=== PATIENT | female | born 1975 | race American Indian/Alaskan Native ===

== ENCOUNTER 2022-01-21 07:26 | Inpatient (IN) | payer SELFPAY ==
[2022-01-21 11:06] LABS: Eosinophils # (Auto) 0.1 K/mm3 (0.0-0.4); Eosinophils % (Auto) 1.4 % (0.0-4.3); Lymphocytes # (Auto) 1.4 K/mm3 (1.2-5.4); Lymphocytes % (Auto) 31.1 % (13.4-35.0); Mean Corpuscular HGB Conc 28 % (30-34); Monocytes # (Auto) 0.2 K/mm3 (0.0-0.8); Monocytes % (Auto) 4.7 % (0.0-7.3); Platelet Count 326 K/mm3 (140-440)
[2022-01-21 11:18] LABS: Hematocrit 17.8 % (30.3-42.9); Mean Corpuscular Volume 64 fl (79-97); Red Cell Distribution Width 21.5 % (13.2-15.2)
[2022-01-21] MEDS ORDERED: SODIUM CHLORIDE 0.9% 1000 ML 1,000 ML IV ONE (11:21)
[2022-01-21 11:31] LABS: Alanine Aminotransferase 8 units/L (7-56); Albumin 4.1 g/dL (3.9-5); Calcium 8.8 mg/dL (8.4-10.2); Hemolysis Index 0
--- NOTE | 2022-01-21 11:39 | XRay Report ---
XR chest routine 2V INDICATION / CLINICAL INFORMATION: Chest Pain COMPARISON: 03/06/2012 FINDINGS: SUPPORT DEVICES: None. HEART / MEDIASTINUM: No significant abnormality. LUNGS / PLEURA: Lungs are clear. Costophrenic sulci are sharp. No pneumothorax. ADDITIONAL FINDINGS: No significant additional findings. IMPRESSION: 1. No acute findings. Signer Name: Teto Hernandez MD Signed: 01/21/2022 11:34 AM Workstation Name: [id number]
[2022-01-21 11:43] LABS: Basophils # (Auto) 0.1 K/mm3 (0.0-0.1); Basophils % (Auto) 2.7 % (0.0-1.8); Eosinophils # (Auto) 0.1 K/mm3 (0.0-0.4); Eosinophils % (Auto) 1.6 % (0.0-4.3); Lymphocytes # (Auto) 1.2 K/mm3 (1.2-5.4); Lymphocytes % (Auto) 25.5 % (13.4-35.0); Mean Corpuscular HGB Conc 29 % (30-34); Monocytes # (Auto) 0.2 K/mm3 (0.0-0.8); Monocytes % (Auto) 4.6 % (0.0-7.3); Platelet Count 313 K/mm3 (140-440); Red Blood Count 2.71 M/mm3 (3.65-5.03)
[2022-01-21 11:50] LABS: BUN/Creatinine Ratio 22; Blood Urea Nitrogen 11 mg/dL (7-17)
[2022-01-21 11:50] LABS: Mean Corpuscular Volume 63 fl (79-97); Red Cell Distribution Width 21.8 % (13.2-15.2)
[2022-01-21] MEDS ORDERED: SODIUM CHLORIDE 0.9% 500 ML 500 ML IV ONE ×2 (12:08→21:06)
--- NOTE | 2022-01-21 12:13 | Emergency Department Report ---
ED General Adult HPI - General Chief complaint: Anxiety Stated complaint: ANXIETY/RT ARM SPASM PUI?: No Time Seen by Provider: 01/21/22 09:55 Source: patient Mode of arrival: Ambulatory Limitations: No Limitations - History of Present Illness Initial comments: Patient is a 46-year-old female that comes to the emergency room from work. She went to work this morning was lifting her mother board with a colleague. When she developed acute onset of right-sided chest pain radiating down her right arm. She states that then cascaded into a series of events where she thought she was having an anxiety attack. She states that her right arm spasmed. On arrival she is tearful. She thinks that she is just having anxiety. She is a mother of 4. She has not seen a doctor in over 10 years. On arrival to the ER she states that the pain went away on its own. She did not take anything prior to arrival. Patient is on no home medications -: Sudden, hour(s) Location: chest Radiation: other Consistency: intermittent Improves with: immobilization Worsens with: movement Associated Symptoms: denies other symptoms, chest pain, loss of appetite, malaise, weakness. denies: confusion, cough, diaphoresis, fever/chills, headaches, nausea/vomiting, rash, seizure, shortness of breath, syncope Treatments Prior to Arrival: none - Related Data Allergies Allergy/AdvReac Type Severity Reaction Status Date / Time No Known Allergies Allergy Verified 01/21/22 07:35 ED Review of Systems ROS: Stated complaint: ANXIETY/RT ARM SPASM Other details as noted in HPI Comment: All other systems reviewed and negative ED Past Medical Hx - Past Medical History Previous Medical History?: Yes Hx Psychiatric Treatment: Yes (anxiety) - Surgical History Past Surgical History?: No - Family History Family history: no significant - Social History Smoking Status: Never Smoker Substance Use Type: None ED Physical Exam - General Limitations: No Limitations General appearance: alert - Head Head exam: Present: atraumatic, normocephalic - Eye Eye exam: Present: normal appearance, PERRL, EOMI - ENT ENT exam: Present: mucous membranes moist - Neck Neck exam: Present: normal inspection - Respiratory Respiratory exam: Present: normal lung sounds bilaterally. Absent: respiratory distress - Cardiovascular Cardiovascular Exam: Present: regular rate, normal rhythm. Absent: systolic murmur, diastolic murmur, rubs, gallop - GI/Abdominal GI/Abdominal exam: Present: soft, normal bowel sounds - Extremities Exam Extremities exam: Present: normal inspection - Back Exam Back exam: Present: normal inspection - Neurological Exam Neurological exam: Present: alert, oriented X3 - Psychiatric Psychiatric exam: Present: anxious - Skin Skin exam: Present: warm, dry, intact, pallor. Absent: rash ED Course Vital Signs 01/21/22 01/21/22 01/21/22 07:34 14:00 14:10 Temperature 97.8 F Pulse Rate 89 65 66 Respiratory 18 15 14 Rate Blood Pressure 117/81 134/70 O2 Sat by Pulse 94 55 L 99 Oximetry 01/21/22 01/21/22 01/21/22 14:20 14:30 14:33 Temperature 98.2 F Pulse Rate 61 63 63 Respiratory 11 L 14 12 Rate Blood Pressure 134/70 124/83 O2 Sat by Pulse 100 100 100 Oximetry 01/21/22 01/21/22 01/21/22 14:40 14:50 15:00 Temperature Pulse Rate 63 73 60 Respiratory 15 14 12 Rate Blood Pressure 121/75 121/75 122/72 O2 Sat by Pulse 100 100 100 Oximetry 01/21/22 01/21/22 01/21/22 15:10 15:20 15:30 Temperature Pulse Rate 74 62 74 Respiratory 14 17 11 L Rate Blood Pressure 113/80 113/80 119/68 O2 Sat by Pulse 99 94 Oximetry 01/21/22 01/21/22 01/21/22 15:40 15:50 16:00 Temperature Pulse Rate 71 62 62 Respiratory 9 L 12 11 L Rate Blood Pressure 123/81 123/81 116/87 O2 Sat by Pulse 100 99 100 Oximetry 01/21/22 01/21/22 01/21/22 16:10 16:20 16:30 Temperature Pulse Rate 71 67 68 Respiratory 18 16 13 Rate Blood Pressure 119/78 119/78 119/82 O2 Sat by Pulse 100 100 100 Oximetry 01/21/22 01/21/22 16:40 16:50 Temperature Pulse Rate 69 64 Respiratory 11 L 17 Rate Blood Pressure 122/82 122/82 O2 Sat by Pulse 100 100 Oximetry - Reevaluation(s) Reevaluation #1: 01/21/22 17:14 Dr. Curtis has been paged. She called back she is not on-call. Dr. Butler has now been paged Reevaluation #2: 01/21/22 17:43 Dr. Butler returned page. She wants to see patient outpatient for follow- up. Staffed with Dr. Keita, ER attending. Patient is getting 2 packed cells and needs ongoing monitoring for her symptomatic anemia. Therefore, Dr. Casanova was consulted. He will admit patient. ED Medical Decision Making - Lab Data Result diagrams: 01/21/22 11:30 01/21/22 10:56 - EKG Data -: EKG Interpreted by Ms EKG shows normal: sinus rhythm Rate: normal - Radiology Data Radiology results: report reviewed, image reviewed See report - Medical Decision Making Vital Signs 01/21/22 07:34 Temperature 97.8 F Pulse Rate 89 Respiratory 18 Rate Blood Pressure 117/81 O2 Sat by Pulse 94 Oximetry Vital Signs 01/21/22 07:34 Temperature 97.8 F Pulse Rate 89 Respiratory 18 Rate Blood Pressure 117/81 O2 Sat by Pulse 94 Oximetry Labs 01/21/22 01/21/22 01/21/22 10:56 10:56 10:56 WBC 4.5 RBC 2.80 L Hgb 5.0 L* Hct 17.8 L* MCV 64 L MCH 18 L MCHC 28 L RDW 21.5 H Plt Count 326 Lymph % (Auto) 31.1 Morrill % (Auto) 4.7 Eos % (Auto) 1.4 Baso % (Auto) 1.0 Lymph # (Auto) 1.4 Morrill # (Auto) 0.2 Eos # (Auto) 0.1 Baso # (Auto) 0.0 Seg Neutrophils % 61.8 Seg Neutrophils # 2.8 Sodium 138 Potassium 4.1 Chloride 107.1 H Carbon Dioxide 21 L Anion Gap 14 BUN 11 Creatinine 0.5 L Estimated GFR > 60 BUN/Creatinine Ratio 22 Glucose 100 Calcium 8.8 Total Bilirubin 0.20 AST 16 ALT 8 Alkaline Phosphatase 55 Troponin T < 0.010 Total Protein 6.7 Albumin 4.1 Albumin/Globulin Ratio 1.6 TSH HCG, Qual Negative 01/21/22 01/21/22 10:56 11:30 WBC 4.8 RBC 2.71 L Hgb 5.0 L* Hct 17.0 L* MCV 63 L MCH 18 L MCHC 29 L RDW 21.8 H Plt Count 313 Lymph % (Auto) 25.5 Morrill % (Auto) 4.6 Eos % (Auto) 1.6 Baso % (Auto) 2.7 H Lymph # (Auto) 1.2 Morrill # (Auto) 0.2 Eos # (Auto) 0.1 Baso # (Auto) 0.1 Seg Neutrophils % 65.6 Seg Neutrophils # 3.2 Sodium Potassium Chloride Carbon Dioxide Anion Gap BUN Creatinine Estimated GFR BUN/Creatinine Ratio Glucose Calcium Total Bilirubin AST ALT Alkaline Phosphatase Troponin T Total Protein Albumin Albumin/Globulin Ratio TSH 0.565 HCG, Qual Hemoglobin noted on CBC. I have resent to validate it. It again came back 5 Patient informed of lab results. She reports still having her periods, they are heavy, but not heavy enough to take her to FISCAL SERVICES DIRECTOR. She states she has not seen any doctor in 10 years patient she has no recent ER visit. Patient denies a history of anemia She denies any GI bleeding. No melena. No bright red blood on BMs. Troponin is normal Twelve-lead EKG noted uterine ultrasound ordered to rule out fibroids Patient states she is currently on her menses Patient to receive 2 units of packed RBCs Pelvic ultrasound noted Staffed with Dr. Keita 1700 repeat CBC and troponin ordered after RBCs. Patient being admitted to [facility] for further eval. Discussed with Dr. Casanova at 1744. He will see patient - Differential Diagnosis ro acs/anxiety/pe/infection Critical care attestation.: If time is entered above; I have spent that time in minutes in the direct care of this critically ill patient, excluding procedure time. ED Disposition Clinical Impression: Symptomatic anemia, Vaginal bleeding Disposition: 02 [facility]ORT TERM [facility] Is pt being admited?: Yes Does the pt Need Aspirin: No Condition: Stable Referrals: DONNA QUIROGA MD [Primary Care Provider] - 3-5 Days LISA CURTIS MD [Staff Physician] - 3-5 Days Time of Disposition: 12:14
--- NOTE | 2022-01-21 13:52 | Ultrasound Report ---
ULTRASOUND PELVIS INDICATION / CLINICAL INFORMATION: dub; hgb 5; pain. TECHNIQUE: Transabdominal and Transvaginal. Duplex Color Doppler used: Yes. COMPARISON: None available FINDINGS: UTERUS: Present. - Appearance (if present): No significant abnormality. - Size in cm (if present): 10.9 x 7.2 x 8.7. - Endometrial Complex (if present): No significant abnormality.. Thickness in cm (if measured) = 1.8 - Mass lesions: There are multiple myometrial masses consistent with uterine fibroids measuring up to 2.8 cm. - Additional findings: None. RIGHT ADNEXA: No significant ovarian cyst or mass. Normal color Doppler blood flow. LEFT ADNEXA: No significant ovarian cyst or mass. Normal color Doppler blood flow. URINARY BLADDER: No significant abnormality. FREE FLUID: None. ADDITIONAL FINDINGS: None. IMPRESSION: 1. Enlarged uterus containing multiple uterine fibroids. Signer Name: Taco Freeman MD Signed: 01/21/2022 1:48 PM Workstation Name: [email or web address]
[2022-01-21 14:19] LABS: Partial Thromboplastin Time 26.6 Sec. (24.2-36.6)
[2022-01-21] MEDS ORDERED: diphenhydrAMINE 50 MG/ML VIAL IV ONE (19:44)
[2022-01-21] MEDS ORDERED: ACETAMINOPHEN 325 MG TAB PO PRN (20:56)
[2022-01-21] MEDS ORDERED: METOCLOPRAMIDE 10 MG/2 ML INJ IV PRN (20:56)
[2022-01-21] MEDS ORDERED: ONDANSETRON 4 MG/2 ML INJ IV PRN (20:56)
[2022-01-21] MEDS ORDERED: SODIUM CHLORIDE 0.9% 1000 ML 1,000 ML IV SCH (21:00)
--- NOTE | 2022-01-21 21:10 | History and Physical Report ---
History of Present Illness Date of examination: 01/21/22 Date of admission: January 21, 2022 Chief complaint: Right-sided chest pain and anxiety around 11 AM at work History of present illness: 46-year-old -[place]ian female with no significant past medical history ex cept for anxiety and menorrhagia comes in for right-sided chest pain when trying to lift some heavy objects with her colleague at work. She developed acute right-sided chest pain radiating down the right arm. Which made her very anxious. On arrival she was tearful. Patient thinks that she is having an anxiety attack. In the emergency room work-up revealed hemoglobin of 5. Apparently patient was told that she has uterine fibroids 1 month ago and that she needs hysterectomy. Patient being admitted for hemoglobin of 5 and anxiety. Chest pain is resolved. She still has heavy menstrual periods. - Past Medical History --Previous Medical History?: Yes --Psychiatric Treatment: Yes (anxiety) - Surgical History --Past Surgical History?: No - Family History --Family history: no significant - Social History --Smoking Status: Never Smoker --Substance Use Type: None Review of Systems ROS: Stated complaint: ANXIETY/RT ARM SPASM Other details as noted in HPI Comment: All other systems reviewed and negative Medications and Allergies Allergies Allergy/AdvReac Type Severity Reaction Status Date / Time No Known Allergies Allergy Verified 01/21/22 07:35 Exam - Constitutional Vitals: Temp Pulse Resp BP Pulse Ox 98.7 F 57 L 15 151/87 100 01/21/22 17:00 01/21/22 19:30 01/21/22 19:30 01/21/22 19:30 01/21/22 19:30 General appearance: Present: no acute distress, well-nourished - EENT Eyes: Present: PERRL ENT: hearing intact, clear oral mucosa, other (Pale conjunctiva mucous membranes) - Neck Neck: Present: supple, normal ROM - Respiratory Respiratory effort: normal Respiratory: bilateral: CTA - Cardiovascular Rhythm: regular Heart Sounds: Present: S1 & S2. Absent: rub, click - Extremities Extremities: pulses symmetrical, No edema Peripheral Pulses: within normal limits - Abdominal General gastrointestinal: Present: soft, non-tender, non-distended, normal bowel sounds Female genitourinary: Present: normal - Integumentary Integumentary: Present: clear, warm, dry - Musculoskeletal Musculoskeletal: gait normal, strength equal bilaterally - Psychiatric Psychiatric: appropriate mood/affect, intact judgment & insight - Neurologic Neurologic: CNII-XII intact, moves all extremities HEART Score - HEART Score Troponin: Troponin T < 0.010 ng/mL (0.00-0.029) 01/21/22 10:56 Results - Labs CBC & Chem 7: 01/21/22 11:30 01/21/22 10:56 Labs: Laboratory Last Values WBC 4.8 K/mm3 (4.5-11.0) 01/21/22 11:30 RBC 2.71 M/mm3 (3.65-5.03) L 01/21/22 11:30 Hgb 5.0 gm/dl (10.1-14.3) L* 01/21/22 11:30 Hct 17.0 % (30.3-42.9) L* 01/21/22 11:30 MCV 63 fl (79-97) L 01/21/22 11:30 MCH 18 pg (28-32) L 01/21/22 11:30 MCHC 29 % (30-34) L 01/21/22 11:30 RDW 21.8 % (13.2-15.2) H 01/21/22 11:30 Plt Count 313 K/mm3 (140-440) 01/21/22 11:30 Lymph % (Auto) 25.5 % (13.4-35.0) 01/21/22 11:30 Morrill % (Auto) 4.6 % (0.0-7.3) 01/21/22 11:30 Eos % (Auto) 1.6 % (0.0-4.3) 01/21/22 11:30 Baso % (Auto) 2.7 % (0.0-1.8) H 01/21/22 11:30 Lymph # (Auto) 1.2 K/mm3 (1.2-5.4) 01/21/22 11:30 Morrill # (Auto) 0.2 K/mm3 (0.0-0.8) 01/21/22 11:30 Eos # (Auto) 0.1 K/mm3 (0.0-0.4) 01/21/22 11:30 Baso # (Auto) 0.1 K/mm3 (0.0-0.1) 01/21/22 11:30 Seg Neutrophils % 65.6 % (40.0-70.0) 01/21/22 11:30 Seg Neutrophils # 3.2 K/mm3 (1.8-7.7) 01/21/22 11:30 PT 14.3 Sec. (12.2-14.9) 01/21/22 12:23 INR 1.00 (0.87-1.13) 01/21/22 12:23 APTT 26.6 Sec. (24.2-36.6) 01/21/22 12:23 Sodium 138 mmol/L (137-145) 01/21/22 10:56 Potassium 4.1 mmol/L (3.6-5.0) 01/21/22 10:56 Chloride 107.1 mmol/L (98-107) H 01/21/22 10:56 Carbon Dioxide 21 mmol/L (22-30) L 01/21/22 10:56 Anion Gap 14 mmol/L 01/21/22 10:56 BUN 11 mg/dL (7-17) 01/21/22 10:56 Creatinine 0.5 mg/dL (0.6-1.2) L 01/21/22 10:56 Estimated GFR > 60 ml/min 01/21/22 10:56 BUN/Creatinine Ratio 22 % 01/21/22 10:56 Glucose 100 mg/dL (65-100) 01/21/22 10:56 Calcium 8.8 mg/dL (8.4-10.2) 01/21/22 10:56 Total Bilirubin 0.20 mg/dL (0.1-1.2) 01/21/22 10:56 AST 16 units/L (5-40) 01/21/22 10:56 ALT 8 units/L (7-56) 01/21/22 10:56 Alkaline Phosphatase 55 units/L (35-129) 01/21/22 10:56 Troponin T < 0.010 ng/mL (0.00-0.029) 01/21/22 10:56 Total Protein 6.7 g/dL (6.3-8.2) 01/21/22 10:56 Albumin 4.1 g/dL (3.9-5) 01/21/22 10:56 Albumin/Globulin Ratio 1.6 % 01/21/22 10:56 TSH 0.565 mlU/mL (0.270-4.200) 01/21/22 10:56 HCG, Qual Negative (Negative) 01/21/22 10:56 Blood Type AB POSITIVE 01/21/22 11:30 Antibody Screen Negative 01/21/22 11:30 Crossmatch See Detail 01/21/22 11:30 Short CBC 01/21/22 01/21/22 Range/Units 10:56 11:30 WBC 4.5 4.8 (4.5-11.0) K/mm3 Hgb 5.0 L* 5.0 L* (10.1-14.3) gm/dl Hct 17.8 L* 17.0 L* (30.3-42.9) % Plt Count 326 313 (140-440) K/mm3 BMP 01/21/22 10:56 Sodium 138 Potassium 4.1 Chloride 107.1 H Carbon Dioxide 21 L BUN 11 Creatinine 0.5 L Glucose 100 Calcium 8.8 Cardiac Enzymes 01/21/22 Range/Units 10:56 Troponin T < 0.010 (0.00-0.029) ng/mL Liver Function 01/21/22 Range/Units 10:56 Total Bilirubin 0.20 (0.1-1.2) mg/dL AST 16 (5-40) units/L ALT 8 (7-56) units/L Alkaline Phosphatase 55 (35-129) units/L Albumin 4.1 (3.9-5) g/dL Assessment and Plan Advance Directives: Yes (Full Code) VTE prophylaxis?: Chemical Plan of care discussed with patient/family: Yes - Patient Problems (1) Symptomatic anemia Current Visit: Yes Status: Acute Plan to address problem: Secondary to menorrhagia Transfused 2 units of blood Patient has fibroids Needs hysterectomy as outpatient CLINICAL OPERATIONS SPECIALIST consulted (2) Acute chest wall pain Current Visit: Yes Status: Acute Plan to address problem: Secondary to lifting heavy objects Muscle spasm No cardiac work-up Chest pain is on the right side (3) Menorrhagia Current Visit: Yes Status: Chronic Qualifiers: Menorrhagia type: with regular cycle Qualified Code(s): N92.0 - Excessive and frequent menstruation with regular cycle Plan to address problem: HEAD END DESIZING MACHINE OPERATOR consulted Has fibroids Needs hysterectomy as outpatient (4) Anxiety attack Current Visit: Yes Status: Acute Plan to address problem: Ativan as needed Not anxious during my exam (5) DVT prophylaxis Current Visit: Yes Status: Acute Plan to address problem: Only SCDs and GI prophylaxis (6) Advance care planning Current Visit: Yes Status: Acute Plan to address problem: Disease education conducted, care plan discussed, diagnosis discussed, prognosis discussed. Patient is full code. Patient acknowledges understanding and agreement with care plan. +30 minutes.
[2022-01-21] MEDS ORDERED: HEPARIN 5,000 UNIT/1 ML VIAL SUB-Q SCH (22:00)
[2022-01-22] MEDS: MORPHINE 2 MG/1 ML INJ IV PRN ×2 (00:41→21:15)
[2022-01-22] MEDS: oxyCODONE /ACETAMINOPHEN 5-325MG TAB PO PRN ×2 (10:04→16:42)
--- NOTE | 2022-01-22 11:28 | Progress Note ---
Assessment and Plan Assessment and plan: 46-year-old -[place]ian female with no significant past medical history except for anxiety and menorrhagia comes in for right-sided chest pain when trying to lift some heavy objects with her colleague at work. She developed acute right-sided chest pain radiating down the right arm. Which made her very anxious. On arrival she was tearful. Patient thinks that she is having an anxiety attack. In the emergency room work-up revealed hemoglobin of 5. Apparently patient was told that she has uterine fibroids 1 month ago and that she needs hysterectomy. Patient being admitted for hemoglobin of 5 and anxiety. Chest pain is resolved. She still has heavy menstrual periods. Transvaginal ultrasound IMPRESSION: 1. Enlarged uterus containing multiple uterine fibroids. Symptomatic anemia Menorrhagia-patient states is debilitating and is affected her life. Uterine fibroids Anxiety DUB secondary to uterine fibroids Possible transfusion reaction Atypical chest pain Plan Continue supportive care Patient was transfused 2 unit packed red blood cells but appears at the second unit secondary to shortness of breath and chest pain she describes the chest pain started with the second unit and resolved when this was stopped with the associated shortness of breath. As result we will get a chest x-ray to further evaluate Awaiting FINANCIAL SALES ASSOCIATE evaluation for noted fibrous and possible hysterectomy Consult cardiology for preop clearance considering reported chest pain Continue pain control and anxiety management DVT prophylaxis with SCD considering severe anemia and PPI for GI prophylaxis Advance care planning done on admission History Interval history: Patient seen and examined she says she did have chest pain while she was getting the second dose of her blood transfusion and difficulty breathing which has but resolved. At this time she is having more of suprapubic pain and discomfort which she rates a 6/10 in intensity. Hospitalist Physical - Physical exam Narrative exam: VITAL SIGNS: Reviewed. GENERAL: The patient appears normally developed, in mild distress secondary to pain vital signs as documented. HEAD: No signs of head trauma. EYES: Pupils are equal. Extraocular motions intact. EARS: Hearing grossly intact. MOUTH: Oropharynx is normal. NECK: No adenopathy, no JVD. CHEST: Chest with clear breath sounds bilaterally. No wheezes, rales, or rhonchi. CARDIAC: Regular rate and rhythm. S1 and S2, without murmurs, gallops, or rubs. VASCULAR: No Edema. Peripheral pulses normal and equal in all extremities. ABDOMEN: Soft, tender although no rebound tenderness she is guarding due to discomfort and non distended. No rebound or guarding, and no masses palpated. Bowel Sounds normal. MUSCULOSKELETAL: Good range of motion of all major joints. Extremities without clubbing, cyanosis or edema. NEUROLOGIC EXAM: Alert and oriented x 3 No focal sensory or strength deficits. Speech normal. Follows commands. PSYCHIATRIC: Mood normal. SKIN: detail exam as documented in skin assessment - Constitutional Vitals: Temp Pulse Resp BP Pulse Ox 98 F 57 L 17 109/71 100 01/22/22 05:13 01/22/22 05:13 01/22/22 05:13 01/22/22 05:13 01/22/22 05:13 General appearance: Present: no acute distress, well-nourished HEART Score - HEART Score Troponin: Troponin T < 0.010 ng/mL (0.00-0.029) 01/21/22 10:56 Results - Labs CBC & Chem 7: 01/21/22 11:30 01/21/22 10:56 Labs: Laboratory Last Values WBC 4.8 K/mm3 (4.5-11.0) 01/21/22 11:30 RBC 2.71 M/mm3 (3.65-5.03) L 01/21/22 11:30 Hgb 5.0 gm/dl (10.1-14.3) L* 01/21/22 11:30 Hct 17.0 % (30.3-42.9) L* 01/21/22 11:30 MCV 63 fl (79-97) L 01/21/22 11:30 MCH 18 pg (28-32) L 01/21/22 11:30 MCHC 29 % (30-34) L 01/21/22 11:30 RDW 21.8 % (13.2-15.2) H 01/21/22 11:30 Plt Count 313 K/mm3 (140-440) 01/21/22 11:30 Lymph % (Auto) 25.5 % (13.4-35.0) 01/21/22 11:30 Nolan % (Auto) 4.6 % (0.0-7.3) 01/21/22 11:30 Eos % (Auto) 1.6 % (0.0-4.3) 01/21/22 11:30 Baso % (Auto) 2.7 % (0.0-1.8) H 01/21/22 11:30 Lymph # (Auto) 1.2 K/mm3 (1.2-5.4) 01/21/22 11:30 Nolan # (Auto) 0.2 K/mm3 (0.0-0.8) 01/21/22 11:30 Eos # (Auto) 0.1 K/mm3 (0.0-0.4) 01/21/22 11:30 Baso # (Auto) 0.1 K/mm3 (0.0-0.1) 01/21/22 11:30 Seg Neutrophils % 65.6 % (40.0-70.0) 01/21/22 11:30 Seg Neutrophils # 3.2 K/mm3 (1.8-7.7) 01/21/22 11:30 PT 14.3 Sec. (12.2-14.9) 01/21/22 12:23 INR 1.00 (0.87-1.13) 01/21/22 12:23 APTT 26.6 Sec. (24.2-36.6) 01/21/22 12:23 Sodium 138 mmol/L (137-145) 01/21/22 10:56 Potassium 4.1 mmol/L (3.6-5.0) 01/21/22 10:56 Chloride 107.1 mmol/L (98-107) H 01/21/22 10:56 Carbon Dioxide 21 mmol/L (22-30) L 01/21/22 10:56 Anion Gap 14 mmol/L 01/21/22 10:56 BUN 11 mg/dL (7-17) 01/21/22 10:56 Creatinine 0.5 mg/dL (0.6-1.2) L 01/21/22 10:56 Estimated GFR > 60 ml/min 01/21/22 10:56 BUN/Creatinine Ratio 22 % 01/21/22 10:56 Glucose 100 mg/dL (65-100) 01/21/22 10:56 Calcium 8.8 mg/dL (8.4-10.2) 01/21/22 10:56 Total Bilirubin 0.20 mg/dL (0.1-1.2) 01/21/22 10:56 AST 16 units/L (5-40) 01/21/22 10:56 ALT 8 units/L (7-56) 01/21/22 10:56 Alkaline Phosphatase 55 units/L (35-129) 01/21/22 10:56 Troponin T < 0.010 ng/mL (0.00-0.029) 01/21/22 10:56 Total Protein 6.7 g/dL (6.3-8.2) 01/21/22 10:56 Albumin 4.1 g/dL (3.9-5) 01/21/22 10:56 Albumin/Globulin Ratio 1.6 % 01/21/22 10:56 TSH 0.565 mlU/mL (0.270-4.200) 01/21/22 10:56 HCG, Qual Negative (Negative) 01/21/22 10:56 Blood Type AB POSITIVE 01/21/22 11:30 Antibody Screen Negative 01/21/22 11:30 Crossmatch See Detail 01/21/22 11:30 Oneill/IV: Voiding Method Toilet Active Medications - Current Medications Current Medications: Generic Name Dose Route Start Last Admin Trade Name Freq PRN Reason Stop Dose Admin Acetaminophen 650 mg 01/21/22 20:56 01/22/22 00:31 Acetaminophen 325 Mg Tab PO 650 mg Q4H PRN Administration Pain MILD(1-3)/Fever >100.5/DARNELL Sodium Chloride 1,000 mls @ 42 mls/hr 01/21/22 21:00 01/22/22 10:18 Nacl 0.9% 1000 Ml IV 42 mls/hr DIRECT LUIS Administration Metoclopramide HCl 10 mg 01/21/22 20:56 01/22/22 01:15 Metoclopramide 10 Mg/2 Ml Inj IV 10 mg Q6H PRN Administration Nausea And Vomiting Morphine Sulfate 2 mg 01/21/22 20:56 01/22/22 00:41 Morphine 2 Mg/1 Ml Inj IV 2 mg Q4H PRN Administration Pain, Moderate (4-6) Ondansetron HCl 4 mg 01/21/22 20:56 Ondansetron 4 Mg/2 Ml Inj IV Q8H PRN Nausea And Vomiting Oxycodone/Acetaminophen 1 tab 01/21/22 20:56 01/22/22 10:04 Oxycodone /Acetaminophen 5-325mg Tab PO 1 tab Q6H PRN Administration Pain, Moderate (4-6) Sodium Chloride 10 ml 01/21/22 22:00 01/22/22 10:10 Sodium Chloride 0.9% 10 Ml Flush Syringe IV 10 ml BID LUIS Administration Sodium Chloride 10 ml 01/21/22 20:56 Sodium Chloride 0.9% 10 Ml Flush Syringe IV PRN PRN LINE FLUSH
--- NOTE | 2022-01-22 12:04 | Consultation ---
History of Present Illness Consult date: 01/22/22 Requesting physician: SHIRA SUTTON Consult reason: other (Preop clearance) History of present illness: Patient is a 46y/o female with pmhx of anxiety, depressions, and uterine fibroid/tumors?(patient is unsure) who reported to the ED with a complaint of sudden onset of right arm numbness, dizziness, and seeing stars when at work lifting an object yesterday. Patient drove her self to the hospital for further evaluation. In the ED patient was found to have a hemoglobin of 5. Patient received blood transfusion patient reports that during blood transfusion she had quick episode of sharp pain but has not had any other episodes of chest pain. Furthermore patient does report that during her menstrual cycles which has large amounts of bleeding. At time of interview patient denies chest pain, shortness of breath, vomiting, diaphoresis, or palpitations. She does report that she has abdominal pain in her pelvic area and some nausea. Patient is previously known to our practice. Cardiology is consulted for chest pain and preop clearance. Past History Past Medical History: other (See HPI) Past Surgical History: No surgical history Social history: no significant social history Family history: cancer, stroke Medications and Allergies Allergies Allergy/AdvReac Type Severity Reaction Status Date / Time No Known Allergies Allergy Verified 01/21/22 07:35 Active Meds: Active Medications Acetaminophen (Acetaminophen 325 Mg Tab) 650 mg PO Q4H PRN PRN Reason: Pain MILD(1-3)/Fever >100.5/DARNELL Last Admin: 01/22/22 00:31 Dose: 650 mg Sodium Chloride (Nacl 0.9% 1000 Ml) 1,000 mls @ 42 mls/hr IV DIRECT LUIS Last Admin: 01/22/22 10:18 Dose: 42 mls/hr Metoclopramide HCl (Metoclopramide 10 Mg/2 Ml Inj) 10 mg IV Q6H PRN PRN Reason: Nausea And Vomiting Last Admin: 01/22/22 01:15 Dose: 10 mg Morphine Sulfate (Morphine 2 Mg/1 Ml Inj) 2 mg IV Q4H PRN PRN Reason: Pain, Moderate (4-6) Last Admin: 01/22/22 00:41 Dose: 2 mg Ondansetron HCl (Ondansetron 4 Mg/2 Ml Inj) 4 mg IV Q8H PRN PRN Reason: Nausea And Vomiting Oxycodone/Acetaminophen (Oxycodone /Acetaminophen 5-325mg Tab) 1 tab PO Q6H PRN PRN Reason: Pain, Moderate (4-6) Last Admin: 01/22/22 10:04 Dose: 1 tab Sodium Chloride (Sodium Chloride 0.9% 10 Ml Flush Syringe) 10 ml IV BID LUIS Last Admin: 01/22/22 10:10 Dose: 10 ml Sodium Chloride (Sodium Chloride 0.9% 10 Ml Flush Syringe) 10 ml IV PRN PRN PRN Reason: LINE FLUSH Review of Systems Constitutional: no weight loss, no weight gain, no fever, no chills Ears, nose, mouth and throat: no nasal discharge, no sinus pressure, no sinus pain Cardiovascular: no chest pain, no orthopnea, no palpitations, no rapid/irregular heart beat, no shortness of breath, no dyspnea on exertion Respiratory: no shortness of breath, no dyspnea on exertion Gastrointestinal: nausea, no vomiting Genitourinary Female: menorrhagia, abnormal vaginal bleeding Menstruation: menses 8 or > days Musculoskeletal: shooting arm pain (Right upper extremity), no neck stiffness, no neck pain Integumentary: no rash, no pruritis, no redness Neurological: no head injury, no transient paralysis, no paralysis, no weakness Psychiatric: anxiety, no memory loss Endocrine: no cold intolerance, no heat intolerance Hematologic/Lymphatic: no easy bruising, no easy bleeding Physical Examination Vital Signs Temp Pulse Resp BP Pulse Ox 97.8 F 89 18 117/81 94 01/21/22 07:34 01/21/22 07:34 01/21/22 07:34 01/21/22 07:34 01/21/22 07:34 General appearance: no acute distress HEENT: Positive: PERRL Cardiac: Positive: Reg Rate and Rhythm Lungs: Positive: Normal Breath Sounds Neuro: Positive: Grossly Intact Abdomen: Positive: Soft, Active Bowel Sounds Skin: Negative: Rash, Suspicious Lesions, Ulceration Extremities: Present: upper extr. pulses. Absent: edema Results 01/21/22 11:30 01/21/22 10:56 Coagulation 01/21/22 Range/Units 12:23 PT 14.3 (12.2-14.9) Sec. INR 1.00 (0.87-1.13) APTT 26.6 (24.2-36.6) Sec. - Imaging and Cardiology Echo: pending EKG interpretations - Telemetry EKG Rhythm: Sinus Rhythm - EKG Sinus rhythms and dysrhythmias: sinus rhythm Repolarization changes or abnormalities: nonspecific abnormality, ST segment, and/or T wave Assessment and Plan Patient is a 46y/o female with pmhx of anxiety, depressions, and uterine fibroid/tumors?(patient is unsure) who reported to the ED with a complaint of sudden onset of right arm numbness, dizziness, and seeing stars when at work lifting an object yesterday and found to have hemoglobin of 5 as a result of vaginal bleed Symptomatic anemia Menorrhagia Anxiety Depression Uterine fibroids? Plan: EKG shows sinus rhythm 67 with nonspecific T abnormalities. Troponin negative x1. Patient denies any complaint of chest pain Echo pending Pt is RCRI class 2 (1 points, 6 % risk of MACE) awaiting surgical intervention for hysterectomy. Patient is without ischemic changes on EKG. In the absence of ischemic cardiac symptoms or acutely decompensated heart failure and no contraindications to surgical intervention at this point from a CV standpoint Patient seen in conjunction with Dr. Perez who agrees with this plan of care - Patient Problems (1) Anxiety attack Current Visit: Yes Status: Acute (2) Symptomatic anemia Current Visit: Yes Status: Acute (3) Vaginal bleeding Current Visit: Yes Status: Acute (4) Menorrhagia Current Visit: Yes Status: Chronic Qualifiers: Menorrhagia type: with regular cycle Qualified Code(s): N92.0 - Excessive and frequent menstruation with regular cycle
[2022-01-22 12:08] LABS: Bacteria,Urine 1+ /HPF (Negative); Bilirubin,Urine NEG (Negative); Blood,Urine LG (Negative); Color,Urine Yellow (Yellow); Mucus,Urine 2+ /HPF
[2022-01-22 12:09] LABS: RBC,Urine > 182.0 /HPF (0.0-6.0)
--- NOTE | 2022-01-22 12:13 | XRay Report ---
CHEST 1 VIEW INDICATION / CLINICAL INFORMATION: shortness of breath. COMPARISON: 01/21/2022 FINDINGS: SUPPORT DEVICES: None. HEART / MEDIASTINUM: No significant abnormality. LUNGS / PLEURA: No significant pulmonary or pleural abnormality. No pneumothorax. ADDITIONAL FINDINGS: No significant additional findings. IMPRESSION: 1. No acute findings. Signer Name: Theo Cook MD Signed: 01/22/2022 12:09 PM Workstation Name: [id number]
[2022-01-22 12:41] LABS: Amphetamine Screen,Urine Negative; Benzodiazepines Screen,Urine Negative; Cocaine Screen,Urine Negative; Methadone Screen,Urine Negative; Opiate Screen,Urine Negative
[2022-01-22 13:03] LABS: Cannabinoid Screen,Urine Positive
[2022-01-22 13:39] LABS: Hematocrit 27.8 % (30.3-42.9); Hemoglobin 8.7 gm/dl (10.1-14.3); Mean Corpuscular HGB Conc 31 % (30-34); Mean Corpuscular Volume 72 fl (79-97); Platelet Count 284 K/mm3 (140-440); Red Blood Count 3.86 M/mm3 (3.65-5.03)
[2022-01-22 13:43] LABS: Blood Urea Nitrogen 7 mg/dL (7-17); Calcium 8.8 mg/dL (8.4-10.2); Hemolysis Index 1
[2022-01-22 13:45] LABS: Red Cell Distribution Width 25.7 % (13.2-15.2)
[2022-01-22 13:56] LABS: Creatine Kinase MB 1.1 ng/mL (0.0-4.0)
[2022-01-22 14:07] LABS: BUN/Creatinine Ratio 14
[2022-01-22 14:34] LABS: Total Cells Counted 100
[2022-01-22 14:39] LABS: Anisocytosis 2+; Poikilocytosis Few
[2022-01-22 14:40] LABS: Hypochromasia 1+; Large Platelets Rare; Ovalocytes Rare; Platelet Estimate Consistent w Auto; Tear Drop Cells Rare
--- NOTE | 2022-01-22 17:36 | Consultation ---
History of Present Illness Consult date: 01/22/22 Reason for consult: menorrhagia History of present illness: I am not taking this patient to surgery on this admission as I explained to the ER PA during our phone consult 01/21/22. She requires a complete workup to include an endometrial biopsy which is unavailable while inpatient. She is not a candidate for surgery on this admission-she is hemodynamically stable without tachycardia. Her issues are chronic. She has menorrhagia that can be managed with medication after hyperplasia/malignancy is ruled out. Her cardiac symptoms most likely second to chronic iron deficiency anemia obvious supersede her chronic cyclic vaginal bleeding(MENORRHAGIA). Please have patient follow up 7 days after discharge. My recommendations remain the same: blood transfusion to a Hb between 8-10 and outpatient follow up. Nicky Butler MD Medications and Allergies Allergies Allergy/AdvReac Type Severity Reaction Status Date / Time No Known Allergies Allergy Verified 01/21/22 07:35 Home Medications Medication Instructions Recorded Confirmed Last Taken Type No Known Home Medications [No 01/22/22 01/22/22 Unknown History Reported Home Medications] Active Meds: Active Medications Acetaminophen (Acetaminophen 325 Mg Tab) 650 mg PO Q4H PRN PRN Reason: Pain MILD(1-3)/Fever >100.5/DARNELL Last Admin: 01/22/22 00:31 Dose: 650 mg Sodium Chloride (Nacl 0.9% 1000 Ml) 1,000 mls @ 42 mls/hr IV DIRECT LUIS Last Admin: 01/22/22 10:18 Dose: 42 mls/hr Metoclopramide HCl (Metoclopramide 10 Mg/2 Ml Inj) 10 mg IV Q6H PRN PRN Reason: Nausea And Vomiting Last Admin: 01/22/22 01:15 Dose: 10 mg Morphine Sulfate (Morphine 2 Mg/1 Ml Inj) 2 mg IV Q4H PRN PRN Reason: Pain, Moderate (4-6) Last Admin: 01/22/22 00:41 Dose: 2 mg Ondansetron HCl (Ondansetron 4 Mg/2 Ml Inj) 4 mg IV Q8H PRN PRN Reason: Nausea And Vomiting Oxycodone/Acetaminophen (Oxycodone /Acetaminophen 5-325mg Tab) 1 tab PO Q6H PRN PRN Reason: Pain, Moderate (4-6) Last Admin: 01/22/22 16:42 Dose: 1 tab Sodium Chloride (Sodium Chloride 0.9% 10 Ml Flush Syringe) 10 ml IV BID LUIS Last Admin: 01/22/22 10:10 Dose: 10 ml Sodium Chloride (Sodium Chloride 0.9% 10 Ml Flush Syringe) 10 ml IV PRN PRN PRN Reason: LINE FLUSH - Vital Signs Vital signs: Vital Signs Temp Pulse Resp BP Pulse Ox 97.8 F 89 18 117/81 94 01/21/22 07:34 01/21/22 07:34 01/21/22 07:34 01/21/22 07:34 01/21/22 07:34 Temp Pulse Resp BP Pulse Ox 97.7 F 46 L 16 155/85 100 01/22/22 16:40 01/22/22 16:40 01/22/22 16:40 01/22/22 16:40 01/22/22 16:40 Results Result Diagrams: 01/22/22 12:57 01/22/22 12:57 Abnormal lab results 01/21/22 01/22/22 01/22/22 Range/Units 11:30 12:57 12:57 Hgb 8.7 L D (10.1-14.3) gm/dl Hct 27.8 L D (30.3-42.9) % MCV 72 L (79-97) fl MCH 23 L (28-32) pg RDW 25.7 H (13.2-15.2) % Lymphocytes # (Manual) 1.1 L (1.2-5.4) K/mm3 Chloride 109.7 H (98-107) mmol/L Carbon Dioxide 21 L (22-30) mmol/L Creatinine 0.5 L (0.6-1.2) mg/dL Crossmatch See Detail All other labs normal.
[2022-01-23] MEDS: oxyCODONE /ACETAMINOPHEN 5-325MG TAB PO PRN (08:03)
--- NOTE | 2022-01-23 08:21 | Progress Note ---
Assessment and Plan Assessment and plan: 46-year-old -[place] female with no significant past medical history except for anxiety and menorrhagia comes in for right-sided chest pain when trying to lift some heavy objects with her colleague at work. She developed acute right-sided chest pain radiating down the right arm. Which made her very anxious. On arrival she was tearful. Patient thinks that she is having an anxiety attack. In the emergency room work-up revealed hemoglobin of 5. Apparently patient was told that she has uterine fibroids 1 month ago and that she needs hysterectomy. Patient being admitted for hemoglobin of 5 and anxiety. Chest pain is resolved. She still has heavy menstrual periods. Transvaginal ultrasound IMPRESSION: 1. Enlarged uterus containing multiple uterine fibroids. --Symptomatic anemia; received total 4 units of PRBC Hemoglobin improved from 5-8.4 --Menorrhagia-secondary to uterine fibroids patient states is debilitating and is affected her life. INFORMATION SYSTEMS PLANNER evaluated and recommended follow-up for hysterectomy --Uterine fibroids; INFORMATION SYSTEMS PLANNER evaluated the patient , recommend outpatient follow-up for further work-up --Anxiety; Xanax as needed --Atypical chest pain; cardiology evaluated, cleared for INFORMATION SYSTEMS PLANNER surgery. -- DVT prophylaxis; SCDs No pharmacologic anticoagulation due to severe anemia and bleeding Closely monitor the patient and adjust management as needed Possible discharge in 1 to 2 days if stable Hospitalist Physical - Constitutional Vitals: Temp Pulse Resp BP Pulse Ox 98.2 F 58 L 20 115/61 100 01/23/22 06:00 01/23/22 06:00 01/23/22 06:00 01/23/22 06:00 01/23/22 06:00 General appearance: Present: no acute distress HEART Score - HEART Score Troponin: Troponin T < 0.010 ng/mL (0.00-0.029) 01/22/22 12:57 Results - Labs CBC & Chem 7: 01/22/22 12:57 01/22/22 12:57 Labs: Laboratory Last Values WBC 4.6 K/mm3 (4.5-11.0) 01/22/22 12:57 RBC 3.86 M/mm3 (3.65-5.03) 01/22/22 12:57 Hgb 8.7 gm/dl (10.1-14.3) L D 01/22/22 12:57 Hct 27.8 % (30.3-42.9) L D 01/22/22 12:57 MCV 72 fl (79-97) L 01/22/22 12:57 MCH 23 pg (28-32) L 01/22/22 12:57 MCHC 31 % (30-34) 01/22/22 12:57 RDW 25.7 % (13.2-15.2) H 01/22/22 12:57 Plt Count 284 K/mm3 (140-440) 01/22/22 12:57 Lymph % (Auto) 25.5 % (13.4-35.0) 01/21/22 11:30 [place] % (Auto) 4.6 % (0.0-7.3) 01/21/22 11:30 Eos % (Auto) 1.6 % (0.0-4.3) 01/21/22 11:30 Baso % (Auto) 2.7 % (0.0-1.8) H 01/21/22 11:30 Lymph # (Auto) 1.2 K/mm3 (1.2-5.4) 01/21/22 11:30 [place] # (Auto) 0.2 K/mm3 (0.0-0.8) 01/21/22 11:30 Eos # (Auto) 0.1 K/mm3 (0.0-0.4) 01/21/22 11:30 Baso # (Auto) 0.1 K/mm3 (0.0-0.1) 01/21/22 11:30 Add Manual Diff Complete 01/22/22 12:57 Total Counted 100 01/22/22 12:57 Seg Neutrophils % 65.6 % (40.0-70.0) 01/21/22 11:30 Seg Neuts % (Manual) 66.0 % (40.0-70.0) 01/22/22 12:57 Band Neutrophils % 0 % 01/22/22 12:57 Lymphocytes % (Manual) 23.0 % (13.4-35.0) 01/22/22 12:57 Reactive Lymphs % (Man) 3.0 % 01/22/22 12:57 Monocytes % (Manual) 6.0 % (0.0-7.3) 01/22/22 12:57 Eosinophils % (Manual) 1.0 % (0.0-4.3) 01/22/22 12:57 Basophils % (Manual) 1.0 % (0.0-1.8) 01/22/22 12:57 Metamyelocytes % 0 % 01/22/22 12:57 Myelocytes % 0 % 01/22/22 12:57 Promyelocytes % 0 % 01/22/22 12:57 Blast Cells % 0 % 01/22/22 12:57 Nucleated RBC % Not Reportable 01/22/22 12:57 Seg Neutrophils # 3.2 K/mm3 (1.8-7.7) 01/21/22 11:30 Seg Neutrophils # Man 3.0 K/mm3 (1.8-7.7) 01/22/22 12:57 Band Neutrophils # 0.0 K/mm3 01/22/22 12:57 Lymphocytes # (Manual) 1.1 K/mm3 (1.2-5.4) L 01/22/22 12:57 Abs React Lymphs (Man) 0.1 K/mm3 01/22/22 12:57 Monocytes # (Manual) 0.3 K/mm3 (0.0-0.8) 01/22/22 12:57 Eosinophils # (Manual) 0.0 K/mm3 (0.0-0.4) 01/22/22 12:57 Basophils # (Manual) 0.0 K/mm3 (0.0-0.1) 01/22/22 12:57 Metamyelocytes # 0.0 K/mm3 01/22/22 12:57 Myelocytes # 0.0 K/mm3 01/22/22 12:57 Promyelocytes # 0.0 K/mm3 01/22/22 12:57 Blast Cells # 0.0 K/mm3 01/22/22 12:57 WBC Morphology Not Reportable 01/22/22 12:57 Hypersegmented Neuts Not Reportable 01/22/22 12:57 Hyposegmented Neuts Not Reportable 01/22/22 12:57 Hypogranular Neuts Not Reportable 01/22/22 12:57 Smudge Cells Not Reportable 01/22/22 12:57 Toxic Granulation Not Reportable 01/22/22 12:57 Toxic Vacuolation Not Reportable 01/22/22 12:57 Dohle Bodies Not Reportable 01/22/22 12:57 Pelger-Huet Anomaly Not Reportable 01/22/22 12:57 Merlin Rods Not Reportable 01/22/22 12:57 Platelet Estimate Consistent w auto 01/22/22 12:57 Clumped Platelets Not Reportable 01/22/22 12:57 Plt Clumps, EDTA Not Reportable 01/22/22 12:57 Large Platelets Rare 01/22/22 12:57 Giant Platelets Not Reportable 01/22/22 12:57 Platelet Satelliting Not Reportable 01/22/22 12:57 Plt Morphology Comment Not Reportable 01/22/22 12:57 RBC Morphology Not Reportable 01/22/22 12:57 Dimorphic RBCs Not Reportable 01/22/22 12:57 Polychromasia Rare 01/22/22 12:57 Hypochromasia 1+ 01/22/22 12:57 Poikilocytosis Few 01/22/22 12:57 Anisocytosis 2+ 01/22/22 12:57 Microcytosis 2+ 01/22/22 12:57 Macrocytosis Not Reportable 01/22/22 12:57 Spherocytes Not Reportable 01/22/22 12:57 Pappenheimer Bodies Not Reportable 01/22/22 12:57 Sickle Cells Not Reportable 01/22/22 12:57 Target Cells Not Reportable 01/22/22 12:57 Tear Drop Cells Rare 01/22/22 12:57 Ovalocytes Rare 01/22/22 12:57 Helmet Cells Not Reportable 01/22/22 12:57 Lucio[place] Bodies Not Reportable 01/22/22 12:57 Sabula Rings Not Reportable 01/22/22 12:57 Angelito Cells Not Reportable 01/22/22 12:57 Bite Cells Not Reportable 01/22/22 12:57 Crenated Cell Not Reportable 01/22/22 12:57 Elliptocytes Rare 01/22/22 12:57 Acanthocytes (Spur) Not Reportable 01/22/22 12:57 Rouleaux Not Reportable 01/22/22 12:57 Hemoglobin C Crystals Not Reportable 01/22/22 12:57 Schistocytes Not Reportable 01/22/22 12:57 Malaria parasites Not Reportable 01/22/22 12:57 Bebeto Bodies Not Reportable 01/22/22 12:57 Hem Pathologist Commnt No 01/22/22 12:57 PT 14.3 Sec. (12.2-14.9) 01/21/22 12:23 INR 1.00 (0.87-1.13) 01/21/22 12:23 APTT 26.6 Sec. (24.2-36.6) 01/21/22 12:23 Sodium 140 mmol/L (137-145) 01/22/22 12:57 Potassium 3.7 mmol/L (3.6-5.0) 01/22/22 12:57 Chloride 109.7 mmol/L (98-107) H 01/22/22 12:57 Carbon Dioxide 21 mmol/L (22-30) L 01/22/22 12:57 Anion Gap 13 mmol/L 01/22/22 12:57 BUN 7 mg/dL (7-17) 01/22/22 12:57 Creatinine 0.5 mg/dL (0.6-1.2) L 01/22/22 12:57 Estimated GFR > 60 ml/min 01/22/22 12:57 BUN/Creatinine Ratio 14 % 01/22/22 12:57 Glucose 97 mg/dL (65-100) 01/22/22 12:57 Calcium 8.8 mg/dL (8.4-10.2) 01/22/22 12:57 Total Bilirubin 0.20 mg/dL (0.1-1.2) 01/21/22 10:56 AST 16 units/L (5-40) 01/21/22 10:56 ALT 8 units/L (7-56) 01/21/22 10:56 Alkaline Phosphatase 55 units/L (35-129) 01/21/22 10:56 Total Creatine Kinase 89 units/L (30-135) 01/22/22 12:57 CK-MB (CK-2) 1.1 ng/mL (0.0-4.0) 01/22/22 12:57 CK-MB (CK-2) Rel Index 1.2 (0-4) 01/22/22 12:57 Troponin T < 0.010 ng/mL (0.00-0.029) 01/22/22 12:57 Total Protein 6.7 g/dL (6.3-8.2) 01/21/22 10:56 Albumin 4.1 g/dL (3.9-5) 01/21/22 10:56 Albumin/Globulin Ratio 1.6 % 01/21/22 10:56 TSH 0.565 mlU/mL (0.270-4.200) 01/21/22 10:56 HCG, Qual Negative (Negative) 01/21/22 10:56 Urine Color Yellow (Yellow) 01/22/22 11:27 Urine Turbidity Hazy (Clear) 01/22/22 11:27 Urine pH 6.0 (5.0-7.0) 01/22/22 11:27 Ur Specific [place] 1.023 (1.003-1.030) 01/22/22 11:27 Urine Protein 30 mg/dl mg/dL (Negative) 01/22/22 11:27 Urine Glucose (UA) Neg mg/dL (Negative) 01/22/22 11:27 Urine Ketones Neg mg/dL (Negative) 01/22/22 11:27 Urine Blood Lg (Negative) 01/22/22 11:27 Urine Nitrite Neg (Negative) 01/22/22 11:27 Urine Bilirubin Neg (Negative) 01/22/22 11:27 Urine Urobilinogen 4.0 mg/dL (<2.0) 01/22/22 11:27 Ur Leukocyte Esterase Neg (Negative) 01/22/22 11:27 Urine WBC (Auto) 2.0 /HPF (0.0-6.0) 01/22/22 11:27 Urine RBC (Auto) > 182.0 /HPF (0.0-6.0) 01/22/22 11:27 U Epithel Cells (Auto) 1.0 /HPF (0-13.0) 01/22/22 11:27 Urine Bacteria (Auto) 1+ /HPF (Negative) 01/22/22 11:27 Urine Mucus 2+ /HPF 01/22/22 11:27 Urine Opiates Screen Negative 01/22/22 11:27 Urine Methadone Screen Negative 01/22/22 11:27 Ur Barbiturates Screen Negative 01/22/22 11:27 Ur Phencyclidine Scrn Negative 01/22/22 11:27 Ur Amphetamines Screen Negative 01/22/22 11:27 U Benzodiazepines Scrn Negative 01/22/22 11:27 Urine Cocaine Screen Negative 01/22/22 11:27 U Marijuana (THC) Screen Positive 01/22/22 11:27 Drugs of Abuse Note Disclamer 01/22/22 11:27 Blood Type AB POSITIVE 01/21/22 11:30 Antibody Screen Negative 01/21/22 11:30 Crossmatch See Detail 01/21/22 11:30 Oneill/IV: Voiding Method Toilet Active Medications - Current Medications Current Medications: Generic Name Dose Route Start Last Admin Trade Name Freq PRN Reason Stop Dose Admin Acetaminophen 650 mg 01/21/22 20:56 01/22/22 00:31 Acetaminophen 325 Mg Tab PO 650 mg Q4H PRN Administration Pain MILD(1-3)/Fever >100.5/DARNELL Sodium Chloride 1,000 mls @ 42 mls/hr 01/21/22 21:00 01/22/22 10:18 Nacl 0.9% 1000 Ml IV 42 mls/hr DIRECT LUIS Administration Metoclopramide HCl 10 mg 01/21/22 20:56 01/22/22 01:15 Metoclopramide 10 Mg/2 Ml Inj IV 10 mg Q6H PRN Administration Nausea And Vomiting Morphine Sulfate 2 mg 01/21/22 20:56 01/22/22 21:15 Morphine 2 Mg/1 Ml Inj IV 2 mg Q4H PRN Administration Pain, Moderate (4-6) Ondansetron HCl 4 mg 01/21/22 20:56 Ondansetron 4 Mg/2 Ml Inj IV Q8H PRN Nausea And Vomiting Oxycodone/Acetaminophen 1 tab 01/21/22 20:56 01/23/22 08:03 Oxycodone /Acetaminophen 5-325mg Tab PO 1 tab Q6H PRN Administration Pain, Moderate (4-6) Sodium Chloride 10 ml 01/21/22 22:00 01/22/22 23:16 Sodium Chloride 0.9% 10 Ml Flush Syringe IV 10 ml BID LUIS Administration Sodium Chloride 10 ml 01/21/22 20:56 01/22/22 23:15 Sodium Chloride 0.9% 10 Ml Flush Syringe IV 10 ml PRN PRN Administration LINE FLUSH
[2022-01-23 08:44] LABS: Hematocrit 28.3 % (30.3-42.9); Hemoglobin 8.8 gm/dl (10.1-14.3); Mean Corpuscular HGB Conc 31 % (30-34); Mean Corpuscular Volume 72 fl (79-97); Platelet Count 252 K/mm3 (140-440); Red Blood Count 3.94 M/mm3 (3.65-5.03)
[2022-01-23 08:51] LABS: Red Cell Distribution Width 25.7 % (13.2-15.2)
[2022-01-23 09:00] LABS: Blood Urea Nitrogen 5 mg/dL (7-17); Calcium 8.6 mg/dL (8.4-10.2); Hemolysis Index 1
[2022-01-23 09:14] LABS: BUN/Creatinine Ratio 8
--- NOTE | 2022-01-23 10:16 | Progress Note ---
Assessment and Plan Patient is a 46y/o female with pmhx of anxiety, depressions, and uterine fibroid/tumors?(patient is unsure) who reported to the ED with a complaint of sudden onset of right arm numbness, dizziness, and seeing stars when at work lifting an object yesterday and found to have hemoglobin of 5 as a result of vaginal bleed Symptomatic anemia Menorrhagia-SIGNAL WORKER HELPER following Anxiety Depression Uterine fibroids? Echo 01/22/2022-EF 60 to 65% transmitral Doppler flow pattern suggests impaired LV relaxation. Right ventricular systolic function is normal. No pericardial effusion. IVC is dilated Plan: EKG shows sinus rhythm 67 with nonspecific T abnormalities. Troponin negative x2. Patient denies any complaint of chest pain. AMI ruled out Echo results noted above. Echo showed dilated IVC. CT chest shows no acute abnormality but moderate coronary calcification Recommend patient follow-up as an outpatient for ischemic eval after SIGNAL WORKER HELPER conditions have resolved Pt is RCRI class 2 (1 points, 6 % risk of MACE) awaiting surgical intervention for hysterectomy. Patient is without ischemic changes on EKG. In the absence of ischemic cardiac symptoms or acutely decompensated heart failure and no contraindications to surgical intervention at this point from a CV standpoint Menorrhagia per SIGNAL WORKER HELPER Discussed plan of care patient verbalized understanding and acknowledgment Cardiac status otherwise stable Patient may follow-up with Dr. Perez, [facility] drug and alcohol treatment specialist, once SIGNAL WORKER HELPER conditions have resolved. Phone #[phone] Patient seen in conjunction with Dr. Perez who agrees with this plan of care - Patient Problems (1) Anxiety attack Current Visit: Yes Status: Acute (2) Symptomatic anemia Current Visit: Yes Status: Acute (3) Vaginal bleeding Current Visit: Yes Status: Acute (4) Menorrhagia Current Visit: Yes Status: Chronic Qualifiers: Menorrhagia type: with regular cycle Qualified Code(s): N92.0 - Excessive and frequent menstruation with regular cycle Subjective Date of service: 01/23/22 Principal diagnosis: Symptomatic anemia, menorrhagia Interval history: Patient resting in bed in no acute distress Patient not on monitor Objective Vital Signs Temp Pulse Resp BP BP Pulse Ox 01/23/22 08:19 98 01/23/22 06:00 98.2 F 58 L 20 115/61 100 01/23/22 02:51 17 100 01/22/22 22:25 98.8 F 49 L 22 138/81 98 01/22/22 16:40 97.7 F 46 L 16 155/85 100 01/22/22 13:23 97.5 F L 56 L 18 135/74 100 01/22/22 13:00 98 - Physical Examination General: No Apparent Distress HEENT: Positive: PERRL Cardiac: Positive: Reg Rate and Rhythm Lungs: Positive: Normal Breath Sounds Neuro: Positive: Grossly Intact Abdomen: Positive: Soft, Active Bowel Sounds Skin: Negative: Rash, Suspicious Lesions, Ulceration Extremities: Present: upper extr. pulses. Absent: edema - Labs and Meds Cardiac Enzymes 01/22/22 Range/Units 12:57 CK-MB (CK-2) 1.1 (0.0-4.0) ng/mL CBC 01/22/22 01/23/22 Range/Units 12:57 07:17 WBC 4.6 3.9 L (4.5-11.0) K/mm3 RBC 3.86 3.94 (3.65-5.03) M/mm3 Hgb 8.7 L D 8.8 L (10.1-14.3) gm/dl Hct 27.8 L D 28.3 L (30.3-42.9) % Plt Count 284 252 (140-440) K/mm3 Comprehensive Metabolic Panel 01/22/22 01/23/22 Range/Units 12:57 07:17 Sodium 140 140 (137-145) mmol/L Potassium 3.7 3.7 (3.6-5.0) mmol/L Chloride 109.7 H 107.1 H (98-107) mmol/L Carbon Dioxide 21 L 23 (22-30) mmol/L BUN 7 5 L (7-17) mg/dL Creatinine 0.5 L 0.6 (0.6-1.2) mg/dL Glucose 97 81 (65-100) mg/dL Calcium 8.8 8.6 (8.4-10.2) mg/dL - Imaging and Cardiology Echo: pending - Telemetry EKG Rhythm: Sinus Rhythm - EKG Sinus rhythms and dysrhythmias: sinus rhythm Repolarization changes or abnormalities: nonspecific abnormality, ST segment, and/or T wave
--- NOTE | 2022-01-23 10:34 | Event Note ---
Date: 01/23/22 I was called by the nurse of this pt concerning Dr. Butler's consult 01/22/22 for this pt to have EMB as an outpatient. I spoke with the patient at length who wants "her God damn uterus out since she is in the hospital" now. I explained at length to the patient that this can be done easily as an outpatient and then depending on the tissue pathology, we would proceed with the appropriate treatment. I gave her the entire result with her uterine size, small fibroids and EMS of 1.8cm. Pt states she is aware where the clinic is and would like to be taken there for the biopsy today and return to the hospital because we are right beside each other. Pt cursed at me and hung up the phone.
--- NOTE | 2022-01-23 10:46 | Electrocardiograph Report ---
[facility] Test Date: 2022-01-21 Test Time: 22:32:38 Pat Name: OZZIE SCALES Department: Room: A360 1 Gender: F Lubricating Machine Tender: Arash CELESTIN : 1975 Requested By: ETIENNE CARLOS Order Number: [id number] Reading MD: Tadeo Perez Measurements Intervals [place] Rate: 65 P: 51 VT: 179 QRS: 46 QRSD: 87 T: 57 QT: 414 QTc: 431 Interpretive Statements Sinus rhythm Low voltage, precordial leads Nonspecific T abnormalities, anterior leads No previous ECG available for comparison Electronically Signed On 01-23-2022 10:46:16 EDT by Tadeo Perez
--- NOTE | 2022-01-23 12:50 | Discharge Summary ---
Providers - Providers Date of Admission: 01/21/22 20:56 Date of discharge: 01/23/22 Attending physician: KAJAL VELAZQUEZ 01/21/22 20:56 Consult to Physician [CONS] Routine Comment: Consulting Provider: KARAN PORTILLO Physician Instructions: Reason For Exam: Menorrhagia 01/22/22 08:17 Consult to Physician [CONS] Routine Comment: Consulting Provider: LAUREANO TINSLEY Physician Instructions: Reason For Exam: chest pain, pre-op clearance Primary care physician: DONNA QUIROGA Hospitalization Reason for admission: Generalized weakness/symptomatic anemia/fibroid uterus Condition: Fair Pertinent studies: Chest x-ray Transvaginal ultrasound Pelvic ultrasound Echocardiogram Chest x-ray Chest CT Hospital course: Transvaginal ultrasound IMPRESSION: 1. Enlarged uterus containing multiple uterine fibroids. --Symptomatic anemia; received total 4 units of PRBC Hemoglobin improved from 5-8.4 --Menorrhagia-secondary to uterine fibroids patient states is debilitating and is affected her life. LENS INSPECTOR evaluated and recommended follow-up for hysterectomy --Uterine fibroids; LENS INSPECTOR evaluated the patient , recommend outpatient follow-up for further work-up --Anxiety; Xanax as needed --Atypical chest pain; cardiology evaluated, cleared for LENS INSPECTOR surgery. -- DVT prophylaxis; SCDs No pharmacologic anticoagulation due to severe anemia and bleeding Disposition: 01 HOME / SELF CARE / HOMELESS Final Discharge Diagnosis (Prints w/discharge instructions): Symptomatic anemia/ received 4 units PRBC. Fibroid uterus. Severe menorrhagia due to fibroid uterus. Anxiety. Atypical chest pain resolved Time spent for discharge: 35 min Core Measure Documentation - Palliative Care Palliative Care/ Comfort Measures: Not Applicable - Core Measures Any of the following diagnoses?: none Exam - Constitutional Vitals: Temp Pulse Resp BP Pulse Ox 98.2 F 58 L 20 115/61 98 01/23/22 06:00 01/23/22 06:00 01/23/22 06:00 01/23/22 06:00 01/23/22 08:19 General appearance: Present: no acute distress, well-nourished - EENT Eyes: Present: PERRL, EOM intact - Neck Neck: Present: supple, normal ROM - Respiratory Respiratory effort: normal, labored Plan Activity: no restrictions Diet: regular Additional Instructions: If you have worsening symptoms contact MD or go to the nearest emergency room as needed. Follow LENS INSPECTOR with in 1 week and follow-up primary care physician in 1 week Follow up with: DONNA QUIROGA MD [Primary Care Provider] - 3-5 Days LISA LOPEZ MD [Staff Physician] - 3-5 Days Forms: Work/School Release Form Prescriptions: Ferrous Sulfate [Feosol 325 MG tab] 325 mg PO BID #60 tablet oxyCODONE /ACETAMINOPHEN [Percocet 5/325 mg] 1 tab PO Q6H PRN #10 tablet PRN Reason: Pain, Moderate (4-6)
[2022-01-23 13:30] VITALS: BP 130/91
--- NOTE | 2022-01-23 13:31 | Cat Scan Report ---
CT CHEST WITH CONTRAST INDICATION / CLINICAL INFORMATION: IVC dilated. TECHNIQUE: Axial CT images were obtained through the chest after 100 cc Omnipaque [address] scans at this location are performed using CT dose reduction for ALARA by means of automated exp osure control. COMPARISON: None available. FINDINGS: HEART: No significant abnormality. CORONARY ARTERY CALCIFICATION: Present -- Moderate. THORACIC AORTA: No significant abnormality. MEDIASTINUM / JESSICA: No significant abnormality. The SVC is normal. PLEURA: No pleural effusion. No pneumothorax. LUNGS: There is mild bibasilar subsegmental atelectasis. There is a subcentimeter thin-walled cyst in the left lower lobe. ADDITIONAL FINDINGS: None. UPPER ABDOMEN: No significant abnormality. The visualized IVC is normal. SKELETAL SYSTEM: No significant abnormality. IMPRESSION: 1. No acute abnormality. 2. Moderate coronary artery calcification. Signer Name: Demond Streeter MD Signed: 01/23/2022 1:26 PM Workstation Name: [id number]
== END 2022-01-23 15:57 | disposition home or self-care (01) | DRG 761 ==
LOC: ED 07:26 → 3A 20:56
PROVIDERS: ADMIT Internal Medicine; ATTEND Internal Medicine
PROC: 30233N1 Transfusion of Nonautologous Red Blood Cells into Peripheral Vein, Percutaneous Approach (ICD-10-PCS; principal; 2022-01-21)
DX: D25.9 Leiomyoma of uterus, unspecified (principal); N92.0 Excessive and frequent menstruation with regular cycle; D64.9 Anemia, unspecified; F41.9 Anxiety disorder, unspecified; R07.89 Other chest pain
CPT/HCPCS: 36415; 71045; 71046; 71260; 76830; 76856; 80048; 80053; 80307; 81001; 82550; 82553; 84443; 84484; 84703; 85007; 85025; 85027; 85610; 85730; 86850; 86900; 86901; 86920; 93005; 93306; 96374; 96375; 99285; G0378; C8929; J1200; J2270; J2765; J7030; P9016; Q9967